=== PATIENT | male | born 1955 | race Caucasian/White ===

== ENCOUNTER 2017-10-27 05:38 | Day surgery (SDC) | payer OTHER ==
[~2017-10-27] VITALS: Ht 181.6 cm; Wt 76.8 kg
[2017-10-27] MEDS ORDERED: EPINEPHrine 1:1,000 [1 MG/ML] AMP SQ ONE (05:39)
[2017-10-27] MEDS ORDERED: LIDOCAINE HCL 2% 5 ML JELLY TP ONE (05:39)
[2017-10-27] MEDS ORDERED: ALBUTEROL SULFATE 2.5 MG/0.5 ML NEB SOLUTION NEB ONE (05:39)
[2017-10-27] MEDS ORDERED: LIDOCAINE HCL 4% 50 ML SOLUTION TP ONE (05:39)
[2017-10-27] MEDS ORDERED: BENZOCAINE 20% 50 MCG/SPRAY 57 GM TP ONE (05:39)
[2017-10-27] MEDS ORDERED: SODIUM CHLORIDE 0.9% 1,000 ML IV ONE ×2 (06:00)
[2017-10-27] MEDS ORDERED: IPRAHFA IH (06:50)
[2017-10-27] MEDS ORDERED: ALBU8HFA IH (06:50)
[2017-10-27] MEDS ORDERED: MOME13HF IH (06:50)
[2017-10-27] MEDS ORDERED: AMLO-511 PO (06:50)
[2017-10-27] MEDS ORDERED: ALBU8.5H8 IH (06:50)
[2017-10-27] MEDS ORDERED: MIDAZOLAM HCL 2 MG/2 ML VIAL ONE (07:23)
[2017-10-27] MEDS ORDERED: FentaNYL CITRATE-PF 100 MCG/2 ML VIAL ONE (07:24)
[2017-10-27] MEDS ORDERED: MethylPREDNISolone SOD SUCC 125 MG/2 ML VIAL IVP ONE (08:30)
[2017-10-27] MEDS ORDERED: MethylPREDNISolone SOD SUCC 125 MG/2 ML VIAL ONE (08:43)
[2017-10-27] MEDS ORDERED: OXYGEN THERAPY IH SCH (20:00)
== END 2017-10-27 11:00 | disposition home or self-care (01) ==
LOC: SURGERY 05:38
PROVIDERS: ATTEND Internal Medicine Critical Care Medicine
DX: J38.4 Edema of larynx (principal); B37.0 Candidal stomatitis; J84.111 Idiopathic interstitial pneumonia, not otherwise specified; I10 Essential (primary) hypertension; F15.21 Other stimulant dependence, in remission; F12.21 Cannabis dependence, in remission; Z87.891 Personal history of nicotine dependence; Z72.89 Other problems related to lifestyle
CPT/HCPCS: 31623; 31624; 71010; 87015 ×2; 87070; 87101; 87205; 87220; 88108; 88312; 93005; J0171; J2250; J2930; J3010; J7030